=== PATIENT | male | born 1975 | race Caucasian/White ===

== ENCOUNTER 2019-11-21 08:07 | Emergency (ER) | payer SELFPAY ==
[2019-11-21 08:16] VITALS: BP 128/91; PULSE 81; RESP 16; TEMP 36.6; O2SAT 97
--- NOTE | 2019-11-21 08:29 | XR_ITS ---
WS: [id number] LEFT RIBS, MULTIPLE VIEWS HISTORY: chest pain COMPARISON: 12/31/2013 Ribs: No rib fractures or bone destruction identified. Lungs and mediastinum: Lungs clear. No pleural effusion or pneumothorax. XR/XR ribs LT 2V* [id number] IMPRESSION: No LEFT rib fractures identified.
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
[2019-11-21] MEDS: acetaminophen 500 mg Tablet 1000 MG PO (09:52)
[2019-11-21 09:53] VITALS: BP 121/81; PULSE 67; RESP 16; O2SAT 97
--- NOTE | 2019-11-21 13:49 | DCPLANNER ---
manager of development had message to speak with patient about getting established with a primary care physician. manager of development called phone number [phone], unable to speak with patient and unable to leave a voicemail.
== END 2019-11-21 09:53 | disposition home or self-care (01) ==
PROVIDERS: Emergency Provider Nurse Practitioner Family
DX: M94.0 Chondrocostal junction syndrome [Tietze] (principal)
CPT/HCPCS: 12345; 71100; 99282; 99283

== ENCOUNTER 2020-08-17 10:42 | Emergency (ER) | payer MEDICAID, SELFPAY ==
[2020-08-17 10:55] VITALS: BP 135/84; PULSE 80; RESP 18; TEMP 36.8; O2SAT 98; BMI 21.2
[2020-08-17 11:00] VITALS: RESP 15
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
[2020-08-17 11:49] VITALS: RESP 15
== END 2020-08-17 11:50 | disposition home or self-care (01) ==
PROVIDERS: Emergency Provider Nurse Practitioner Family
DX: M79.605 Pain in left leg (principal)
CPT/HCPCS: 73590; 99282

== ENCOUNTER 2020-12-21 08:46 | Emergency (ER) | payer MEDICAID, SELFPAY ==
[2020-12-21 08:55] VITALS: BP 132/88; PULSE 79; RESP 20; TEMP 36.6; O2SAT 97; BMI 20.7
--- NOTE | 2020-12-21 09:09 | XRR_ITS ---
PROCEDURE INFORMATION: Exam: XR Thoracic Spine Exam date and time: 12/21/2020 9:09 AM Age: 45 years old Clinical indication: Pain in thoracic spine; Patient HX: Patient says he was lifting a mattress this morning just prior to arrival and felt something tear in his back. He rates the pain currently a 10 out of 10. Says the pain is in his mid back region. ; Additional info: Mid back injury with pain TECHNIQUE: Imaging protocol: XR of the thoracic spine. Views: 3 views. COMPARISON: [place]* [id number] 12/31/2013 8:36 AM FINDINGS: Bones/joints: Osteopenia with multiple compression fractures, which were also visualized on previous CT. Mild scoliosis. Mild degenerative change. Anatomic alignment. Soft tissues: Normal caliber of the paraspinous soft tissues. XR/XR thoracic spine 3V* [id number] IMPRESSION: Osteopenia with multiple compression fractures. Radiation Dose CTDIVOL = (mGy): DLP = (mGy-cm)
--- NOTE | 2020-12-21 09:14 | W.ED.BACK ---
HPI - Back Pain/Injury General: Chief Complaint: Back Pain/Injury Stated Complaint: Back Pain due to wrong movement Time Seen by Provider: 12/21/20 09:00 History of Present Illness: HPI Narrative: Patient is a 45-year-old male comes to the ED with back pain. Patient says he was lifting a mattress this morning just prior to arrival and felt something tear in his back. He rates the pain currently a 10 out of 10. Says the pain is in his mid back region. Any movement causes worsening symptoms. Resting in certain positions causes some mild improvement in pain. Denies any pain radiating to extremities, numbness/tingling to extremities, bladder or bowel incontinence, pelvic anesthesia or weakness to extremities. Associated symptoms: Deny abdominal pain, chills, dysuria, fatigue, fever(s), hematuria, nausea or vomiting Review of Systems Const: Denies: fever(s), chills or fatigue Eyes: Denies: change in vision or eye discomfort ENMT: Denies: throat pain, odynophagia, nasal discharge or nasal congestion Card: Denies: chest pain, palpitations, edema, swelling of feet/ankles, dyspnea on exertion or orthopnea Resp: Denies: dyspnea, productive cough or non-productive cough GI: Denies: abdominal pain, nausea, vomiting, diarrhea, constipation or hematochezia : Denies: flank pain, difficulty urinating, dysuria or hematuria Musc: Reports: back pain; Denies: neck pain or extremity swelling Skin/Breast: Denies: rash or new lesions Neuro: Denies: headache(s), numbness in extremities or weakness in extremities Physical Exam Const: COMMON NORMALS: patient oriented x3 and alert GENERAL APPEARANCE: cooperative; not comfortable (Patient appears uncomfortable and in some pain) HENMT: COMMON NORMALS: normocephalic HEAD & SCALP: normocephalic MOUTH: Normal oral and palatal mucosa present THROAT: posterior oropharynx normal and uvula midline Neck/C-Spine: COMMON NORMALS: supple GENERAL: Yes normal visual inspection Resp: COMMON NORMALS: normal respiratory effort, No retractions, No use of accessory muscles and clear to auscultation bilaterally AUSCULTATION: clear to auscultation bilaterally Cardio: COMMON NORMALS: regular rate, regular rhythm, S1 normal heart sound present, S2 normal heart sound present, No gallops present (Cardio), No clicks present (Cardio), No murmurs present (Cardio) and Peripheral pulses 2+ throughout RATE: regular rate RHYTHM: regular rhythm HEART SOUNDS: S1 normal heart sound present and S2 normal heart sound present PERIPHERAL PULSES: Peripheral pulses 2+ throughout GI: COMMON NORMALS: Normal to inspection, nondistended, normoactive bowel sounds present, Soft to palpation, non-tender and no masses PALPATION: Yes Soft to palpation : COMMON NORMALS: Yes no CVA tenderness BLADDER/KIDNEY EXAM: Yes no CVA tenderness Back/Pelvis: COMMON NORMALS: no CVA tenderness THORACIC SPINE/UPPER BACK: Yes pain with ROM, Yes thoracic spinal tenderness T-spine tenderness location: T7, T8 and T9 and Yes paraspinal muscle tenderness Thoracic paraspinal muscle tenderness: bilateral Bilateral thoracic paraspinal muscle tenderness: T7, T8 and T9 Extremity: COMMON NORMALS: normal to inspection Neuro: COMMON NORMALS: patient oriented x3 and moves all extremities SENSORIUM/ORIENTATION: Yes alert Skin: GENERAL SKIN EXAM: dry skin Course Consultations: Consultation #1: I contacted radiology to discuss the x-ray thoracic spine findings. They told me that the compression fractures that they see appear unchanged and were visualized in previous CT back in 2013. They felt those were old compression fractures and there is been no acute change with them. Vital Signs: Vital signs: Vital Signs Temperature 97.8 F 12/21/20 08:55 Pulse Rate 79 12/21/20 08:55 Respiratory Rate 20 H 12/21/20 09:17 Blood Pressure 132/88 12/21/20 08:55 Pulse Oximetry 97 12/21/20 08:55 MDM - Back Pain/Injury MDM Narrative: Medical decision making narrative: Patient is a 45-year-old male comes to the ED with mid thoracic back pain after lifting a mattress this morning. He has some thoracic thoracic spine tenderness around T7-T9 and thoracic paraspinal muscle tenderness as well. X-ray of thoracic spine showed osteopenia and there were compression fractures noted but those were seen in previous scans back in 2013 and I talked with radiologist and they said that the compression fractures appear unchanged from previous imaging and they do not appear acute and there is no new fracture seen. Patient was diagnosed with musculoskeletal back pain and discharged home with a prescription for cyclobenzaprine and hydrocodone 5 mg / 325 mg 8 tablets. He was told to follow-up with PCP in 7 to 10 days reevaluation. Return to ED precautions given. Rest, ice and limit lifting. Imaging Data^: Xray Ortho: Attestation: I personally reviewed and interpreted this imaging study as follows: Radiologist's impression: [facility] [address] [place] [address] XRay Report Signed Patient: Artemio Barnes Jr Unit #: [id number] : 1975 Age/Sex: 45 / M ADM Date: 12/21/20 Loc: ER Room/Bed: Attending Dr: Ordering Provider/Ordering MD: Toby Galeano Date of Service: 12/21/20 Procedure(s): XR thoracic spine 3V* [id number] Accession Number(s): [id number] Report Number: [id number] PROCEDURE INFORMATION: Exam: XR Thoracic Spine Exam date and time: 12/21/2020 9:09 AM Age: 45 years old Clinical indication: Pain in thoracic spine; Patient HX: Patient says he was lifting a mattress this morning just prior to arrival and felt something tear in his back. He rates the pain currently a 10 out of 10. Says the pain is in his mid back region. ; Additional info: Mid back injury with pain TECHNIQUE: Imaging protocol: XR of the thoracic spine. Views: 3 views. COMPARISON: [place]* [id number] 12/31/2013 8:36 AM FINDINGS: Bones/joints: Osteopenia with multiple compression fractures, which were also visualized on previous CT. Mild scoliosis. Mild degenerative change. Anatomic alignment. Soft tissues: Normal caliber of the paraspinous soft tissues. XR/XR thoracic spine 3V* [id number] IMPRESSION: Osteopenia with multiple compression fractures. Radiation Dose CTDIVOL = (mGy): DLP = (mGy-cm) Dictated By: Onesimo Fragoso MD Signed By: Onesimo Fragoso MD Signed Date/Time: 12/21/20 1028 DD/ 0909 Discharge Plan Discharge Patient Disposition: Home Clinical Impression: Musculoskeletal back pain Condition: Stable Prescriptions: New cyclobenzaprine 10 mg tablet 10 mg PO BID PRN (Reason: muscle spasm) Qty: 20 RF: 0 No Action methylprednisolone 4 mg tablets,dose pack See Rx Instructions .ROUTE .COMPLEX Qty: 21 RF: 0 Discharge Orders: Discharge ED (Routine); Ordered 12/21/20 Ordered By: Toby Galeano Discharge Diet: Regular Discharge Activity: Increase activity as tolerated and Limit activity as instructed Patient Instructions: Musculoskeletal Pain (ED), Back Pain (ED), Opioid Safety Activity Restrictions/Additional Instructions: Follow-up with medical provider as directed in 5 to 7 days for reevaluation. Take medications as prescribed. Cyclobenzaprine is a muscle relaxer and can cause some drowsiness so take at night before going to bed. Rest, limit lifting and activity for the next couple days and apply cold pack or heat on back to help with symptoms. Return to the ER or your medical provider if condition worsens. Please read and understand discharge instructions. Thank you for choosing [facility] for your healthcare needs today. Please realize this is an emergency room and that we are providing you with a medical screening exam and this may not be complete and all inclusive of all the testing and or work up that you may need to determine your ailment or severity of your illness. It is very important that you follow up as instructed or that you return to the Emergency Department should you have concerns or if your condition changes or worsens in any way. Coding Level of Care Code ED Mortgage Clerk for Carlos Chandler Exam Comprehensive
[2020-12-21 09:17] VITALS: RESP 20
[2020-12-21] MEDS: morphine 4 mg/mL SDV 1 mL IM (09:17)
[2020-12-21] MEDS: orphenadrine 30 mg/mL Inj 2 mL 60 MG IM (09:18)
== END 2020-12-21 11:04 | disposition home or self-care (01) ==
PROVIDERS: Emergency Provider Physician Assistant
DX: M54.89 Other dorsalgia (principal); M85.88 Other specified disorders of bone density and structure, other site
CPT/HCPCS: 72072; 96372; 99283; J2270; J2360

== ENCOUNTER 2020-12-28 06:00 | Outpatient (CLI) | payer MEDICAID, SELFPAY | END 2020-12-28 06:01 | disposition home or self-care (01) | LOC: SPT 12-29 12:25 | PROVIDERS: Referring Provider Pediatrics; Visit Provider Pediatrics | DX: Z46.89 Encounter for fitting and adjustment of other specified devices (principal) | CPT/HCPCS: 97760; L0456 ==

== ENCOUNTER 2021-02-02 06:00 | Outpatient (RCR) | payer MEDICAID, SELFPAY | END 2021-02-12 23:59 | disposition home or self-care (01) | LOC: SPT 06:00 | PROVIDERS: Referring Provider Pediatrics; Visit Provider Pediatrics | DX: M54.89 Other dorsalgia (principal) | CPT/HCPCS: 97161 ==

== ENCOUNTER 2021-02-13 06:00 | Outpatient (RCR) | payer MEDICAID, SELFPAY | END 2021-03-15 23:59 | disposition home or self-care (01) | LOC: SPT 06:00 | PROVIDERS: Referring Provider Pediatrics; Visit Provider Pediatrics | DX: M54.89 Other dorsalgia (principal) | CPT/HCPCS: 97110 ==

== ENCOUNTER → 2021-06-29 11:18 | Outpatient (BNVA) | payer MEDICAID, SELFPAY | PROVIDERS: PCP Pediatrics; Visit Provider Surgery | DX: K61.0 Anal abscess (principal); L03.90 Cellulitis, unspecified | CPT/HCPCS: 99204 ==

== ENCOUNTER → 2021-07-20 08:41 | Outpatient (BNVA) | payer MEDICAID, SELFPAY | PROVIDERS: PCP Pediatrics; Visit Provider Surgery | DX: K61.0 Anal abscess (principal); L03.90 Cellulitis, unspecified | CPT/HCPCS: 99213 ==

== ENCOUNTER 2021-07-26 00:58 | Observation (INO) | payer MEDICAID, SELFPAY ==
[2021-07-26] VITALS (8 sets, daily range): BP systolic 129–161; BP diastolic 85–130; PULSE 61–91; RESP 16–22; TEMP 36.4–36.9; O2SAT 93–100
--- NOTE | 2021-07-26 01:06 | ECG_ITS ---
[facility] Test Date: 2021-07-26 Pat Name: Artemio Barnes Jr Department: Room: Gender: Male Sales Operations Manager: : 1975 Requested By: Tyrone Mitchell Order Number: [id number] Josse MD: Leonor Dyer M.D. Measurements Intervals Bly Rate: 71 P: 58 OK: 152 QRS: 82 QRSD: 94 T: 69 QT: 362 QTc: 395 Interpretive Statements SINUS RHYTHM INCOMPLETE RIGHT BUNDLE BRANCH BLOCK [90+ ms QRS DURATION, TERMINAL R IN V1/V2, 40+ ms S IN I/aVL/V4/V5/V6] SEPTAL MYOCARDIAL INFARCTION , OF INDETERMINATE AGE [40+ ms Q WAVE IN V1/V2] No previous ECG available for comparison Electronically Signed On 07-26-2021 19:39:16 CDT by Leonor Dyer M.D. [id number]
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
[2021-07-26 01:17] LABS: Basophils # 0.1 10^3/uL (0.0-0.1); Basophils % 0.8 %; Eosinophils # 0.4 10^3/uL (0.0-0.8); Eosinophils % 3.6 %; Hematocrit 54.6 % (42.0-52.0); Hemoglobin 18.9 g/dL (11.7-16.6); Lymphocytes # 2.7 10^3/uL (0.8-4.8); Lymphocytes % 25.7 %; Mean Corpuscular HGB Conc 34.6 g/dL (30.0-36.0); Mean Corpuscular Hemoglobin 30.5 pg (28.0-34.0); Mean Corpuscular Volume 88.2 fl (80-94); Mean Platelet Volume 9.5 fL (7.4-10.4); Monocytes # 0.9 10^3/uL (0.2-0.9); Monocytes % 8.8 %; Neutrophils # 6.49 10^3/uL (1.8-7.7); Nucleated Red Blood Cells % 0 %; Platelet Count 269 10^3/cmm (130-400); Red Blood Count 6.19 10^6/uL (4.1-5.3); Red Cell Distribution Width 13.8 % (12.1-15.1); White Blood Count 10.6 10^3/uL (4.0-10.0)
[2021-07-26] MEDS: HYDROmorphone 1 mg/mL INJ 1 mL IVP (01:26)
[2021-07-26] MEDS: ondansetron 2 mg/ML SDV 2 mL 4 MG IVP ×2 (01:26→07:02)
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
[2021-07-26 01:36] LABS: Alanine Aminotransferase 32 U/L (0-41); Albumin Level 4.8 g/dL (3.5-5.2); Alkaline Phosphatase 134 IU/L (40-130); Anion Gap 16.2 (5-19); Aspartate Amino Transferase 23 U/L (0-40); Blood Urea Nitrogen 13 mg/dL (6-20); Calcium 9.6 mg/dL (8.5-10.5); Carbon Dioxide 25 mmol/L (22-29); Chloride 99 mmol/L (98-107); Globulin 3.3 g/dL (1.3-4.6); Glomerular Filtration Rate 105.5 mL/min (90-130); Glucose 100 mg/dL (65-115); Osmolality Calculated 282 mOsm/kg (285-295); Potassium 4.2 mmol/L (3.5-5.1); Sodium 136 mmol/L (136-145); Total Bilirubin 1.4 mg/dL (0.15-1.2); Total Protein 8.1 g/dL (6.6-8.7)
[2021-07-26] MEDS: iohexol 300 mg/mL 100 mL Btl IV (02:06)
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
--- NOTE | 2021-07-26 05:29 | PC.NURSE ---
Has not voided yet-
--- NOTE | 2021-07-26 06:00 | XRR_ITS ---
PROCEDURE INFORMATION: Exam: XR Chest Exam date and time: 07/26/2021 6:55 AM Age: 45 years old Clinical indication: Condition or disease; Lung condition and disease; Pneumothorax; Additional info: Pneumothorx TECHNIQUE: Imaging protocol: XR of the chest. Views: 1 view. Total images: 1 COMPARISON: CT chest abd pel w con* 07/26/2021 2:08 AM FINDINGS: Lungs: Streaky left basilar opacity favors atelectasis. Pleural spaces: Small right pneumothorax similar to prior exam. Heart/Mediastinum: Unremarkable. No cardiomegaly. Diaphragm: There is nonspecific elevation of the right hemidiaphragm. Bones/joints: Osseous structures are unchanged from the prior exam. Organs: Urinary contrast material present at the time of imaging. XR/XR chest 1V portable [id number] IMPRESSION: 1. Small right pneumothorax similar to prior exam. 2. Streaky left basilar opacity favors atelectasis.
[2021-07-26] MEDS: HYDROcodone-acetaminophen 5-325 mg Tablet 1 TAB PO ×2 (06:17→10:59)
[2021-07-26] MEDS: nicotine 21 mg Patch 1 PATCH TRANSDERMA (08:48)
--- NOTE | 2021-07-26 08:51 | PC.NURSE ---
Attempted to administer pt am meds, pt stated that he already took them about 30 min ago. Informed pt that he needed to take our medications while in the hospital. He repeated that he understood.
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
--- NOTE | 2021-07-26 11:01 | XRR_ITS ---
PROCEDURE INFORMATION: Exam: XR Chest Exam date and time: 07/26/2021 10:55 AM Age: 45 years old Clinical indication: Condition or disease; Lung condition and disease; Pneumothorax; Additional info: Right ptx, 10:12--spoke to Dr garcia, HX of pneumothorax, pa/lat requested not TECHNIQUE: Imaging protocol: XR of the chest. Views: 2 views. Total images: 4 COMPARISON: CR (CHEST, ) 07/26/2021 6:55 AM FINDINGS: Lungs: Bibasilar opacities are again noted and appear unchanged from the prior exam. Pleural spaces: Unremarkable. No pleural effusion. No pneumothorax. Heart/Mediastinum: Unremarkable. No cardiomegaly. Bones/joints: Unremarkable. XR/XR chest 2V* [id number] IMPRESSION: Bibasilar opacities are again noted and appear unchanged from the prior exam.
[2021-07-26 11:08] LABS: Hematocrit 51.5 % (42.0-52.0); Hemoglobin 17.6 g/dL (11.7-16.6)
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
== END 2021-07-26 13:30 | disposition home or self-care (01) ==
LOC: ER 02:53 → MEDSURG 02:59
PROVIDERS: Admitting Provider Surgery; Emergency Provider Emergency Medicine; PCP Pediatrics; Visit Provider Surgery
DX: S27.2XXA Traumatic hemopneumothorax, initial encounter (principal); W50.0XXA Accidental hit or strike by another person, initial encounter; J44.9 Chronic obstructive pulmonary disease, unspecified; F41.9 Anxiety disorder, unspecified; F17.210 Nicotine dependence, cigarettes, uncomplicated
CPT/HCPCS: 36415; 71045; 71046; 71101; 71260; 74177; 80053; 85014; 85018; 85025; 93005; 96374; 96375; 99285; G0378; J1170; J2405; Q9967

== ENCOUNTER → 2021-08-03 08:00 | Outpatient (BNVA) | payer MEDICAID, SELFPAY | PROVIDERS: PCP Pediatrics; Visit Provider Surgery | DX: K61.0 Anal abscess (principal); S27.2XXA Traumatic hemopneumothorax, initial encounter; X58.XXXA Exposure to other specified factors, initial encounter | CPT/HCPCS: 71046; 99214 ==

== ENCOUNTER → 2021-09-27 15:08 | Outpatient (BNVA) | payer MEDICAID, SELFPAY | PROVIDERS: PCP Pediatrics; Visit Provider Surgery | DX: K61.0 Anal abscess (principal) | CPT/HCPCS: 99213 ==

== ENCOUNTER 2021-10-06 10:53 | Day surgery (SDC) | payer MEDICAID, SELFPAY ==
[2021-10-06] VITALS (14 sets, daily range): BP systolic 93–134; BP diastolic 67–92; PULSE 55–74; RESP 12–18; TEMP 36.2–36.8; O2SAT 96–99
[2021-10-06] MEDS: sodium chloride 0.9% 1,000 ML 30 ML IV (11:45)
[2021-10-06] MEDS: acetaminophen 1,000 MG/100 ML PIGGYBACK 400 MG IV (11:45)
--- NOTE | 2021-10-06 12:00 | ANES.PREANE2 ---
Pre-Anesthetic Assessment Height/Weight: Height 1.78 m Weight 63.503 kg Temp Pulse Resp BP Pulse Ox O2 Del Method 98.3 F 72 18 125/92 96 10/06/21 11:23 10/06/21 11:23 10/06/21 11:23 10/06/21 11:23 10/06/21 11:23 10/06/21 11:23 Preop Diagnosis: Left perianal abscess Operation Date: 10/06/21 13:35 Proposed Procedures p exam under anesthesia with possible incision and drainage of left perianal abscess 53387,K61(Not Applicable) - Kevin Mclain MD Familial anesthetic complications: none Was Beta Tayo taken within 24 hours: N/A Was Clonidine taken within 24 hours: N/A Last intake: Intake Last Liquid Date 10/06/21 Last Liquid Time 07:00 Last Solid Date 10/05/21 Last Solid Time 12:00 Social Tobacco and No alcohol Exam alert, oriented x 3 and regular rate & rhythm Airway Submandibular: within normal limits Cervical ROM: within normal limits Mallampati: Class II Dentition: chipped Pulmonary Chronic Obstructive Pulmonary Disease GI Gastroesophageal Reflux Disease Anesthetic Plan ASA status: 2 Anesthesia: General Medications/Allergies Home Medications Medication Instructions Recorded Confirmed Last Taken Type escitalopram oxalate 10 mg tablet 10 mg PO QAM 06/29/21 10/06/21 10/05/21 History (Lexapro) fluticasone propionate 50 2 spray intranasal DAILY PRN 06/29/21 10/05/21 Unknown History mcg/actuation nasal Allergy Symptoms spray,suspension (Flonase Allergy Relief) hydroxyzine HCl 25 mg tablet 25 mg PO Q4H PRN Anxiety 06/29/21 10/06/21 Unknown History omeprazole 20 mg capsule,delayed 20 mg PO QAM 06/29/21 10/06/21 10/05/21 History release albuterol sulfate 90 mcg/actuation 2 puff inhalation Q6H PRN 07/26/21 10/06/21 Unknown History aerosol inhaler (ProAir HFA) Shortness Of Breath fluticasone 250 mcg-salmeterol 50 1 inh inhalation BID 07/26/21 10/06/21 10/05/21 History mcg/dose blistr powdr for inhalation (Advair Diskus) peg 3350-electrolytes 236 240 ml PO Q10M #4,000 mL 10/05/21 10/06/21 10/05/21 Rx gram-22.74 gram-6.74 gram-5.86 gram solution (Golytely) Allergies Allergy/AdvReac Type Severity Reaction Status Date / Time ibuprofen Allergy ADR-Vomitin Verified 10/05/21 10:08 g Current Medications Generic Name Dose Route Start Last Admin Trade Name Freq PRN Reason Stop Dose Admin Sodium Chloride 1,000 mls @ 30 mls/hr 10/06/21 11:00 10/06/21 11:45 Sodium Chloride 0.9% IV 10/07/21 10:59 30 mls/hr .Q24H LAN Administration PFSH Anesthesia Medical History Anxiety COPD (chronic obstructive pulmonary disease) Rib fracture Traumatic pneumohemothorax Surgical History H/O unilateral orchiectomy left History of removal of cyst Family History Other Cancer Diabetes Hypertension Social History Smoking and tobacco status: current every day smoker Data Anesthesia Cardiac Studies: No Data to Display
--- NOTE | 2021-10-06 12:16 | W.PM.OPSUD ---
Surgery/Procedure H&P Update DATE OF PROCEDURE: October 06, 2021 DATE H&P PERFORMED: 09/27/21 H&P UPDATE INFORMATION: I have reviewed H&P completed within last 30 days, I have examined patient prior to procedure and Changes to prior documentation as noted here (stopped draining) PREOP DIAGNOSIS: Left perianal abscess PRIMARY INDICATION FOR PROCEDURE: The same PLANNED PROCEDURE: Operation Date: 10/06/21 13:35 Proposed Procedures p exam under anesthesia with possible incision and drainage of left perianal abscess [id number],K61(Not Applicable) - Kevin Mclain MD
[2021-10-06] MEDS: midazolam 1 mg/mL INJ 2 mL 2 MG IVP (12:18)
[2021-10-06] MEDS: piperacillin-tazobactam 3.375 GM in sodium chloride 0.9% (plus) 50 ML IV (12:24)
--- NOTE | 2021-10-06 12:53 | PM.OP ---
Operative Report Date of procedure: October 06, 2021 Pre-op diagnosis: Preop Diagnosis Left perianal abscess Post-op diagnosis: No evidence of perianal infection or fistulae or sinuses Procedure done: Examination under anesthesia Surgeon: Kevin Mclain MD Health And Safety Manager: landscape management technicianez Galdamez Anesthesia: General ([facility] FENCE LABORER Lita) Procedure: Patient was identified in the holding area, was taken to the OR placed first in supine position,IV antibiotics were given with induction time-out was done verifying the patient's name, date of , and procedure, all were in agreement. General anesthetic was administered by the anesthesia provider, patient was placed in left lateral position SCDs were on and functioning. Prep and drape of the perianal and perineum was done under the usual sterile technique Digital rectal examination showed no masses or bleeding or fullness Perianal examination showed completely normal findings, except for previous scar tissues on the right perianal area. Left perianal area showed no induration or sinuses or fistulae or abscess formation. Aspiration of the left perianal area using wide bore needle reveals no pus or blood. A lubricated self-retaining proctoscope was inserted, no evidence of hemorrhoidal tissues or sinuses or fistulae. ABDs were applied followed by surgical pants Patient was repositioned to supine position, counts of instruments,needles and sponges were completed at the end of the procedure Patient was taken to the recovery area in stable condition I was present for the whole entire procedure
--- NOTE | 2021-10-06 13:34 | PC.NURSE ---
patient awake and oral airway removed
[2021-10-06] MEDS: HYDROmorphone 1 mg/mL INJ 1 mL 0.5 MG IVP (14:18)
--- NOTE | 2021-10-06 18:24 | ANE.PACU2 ---
Inpatient post-anesthesia follow up: Airway intact: Yes Vital signs: Temperature 98 F Pulse Rate 65 Respiratory Rate 18 Blood Pressure 134/90 Pulse Oximetry 98 Oxygen Delivery Me thod Room Air Oxygen Flow Rate 10 Fraction of Inspir ed Oxygen Hydration adequate: Yes Nausea and vomiting: No Pain level: 2 Mental status: Baseline
== END 2021-10-06 14:40 | disposition home or self-care (01) ==
PROVIDERS: PCP Pediatrics; Visit Provider Surgery
PROC: (CPT 10160; principal; 2021-10-06 13:25)
DX: K61.0 Anal abscess (principal); J44.9 Chronic obstructive pulmonary disease, unspecified; K21.9 Gastro-esophageal reflux disease without esophagitis
CPT/HCPCS: 10160; J1170; J2250; J2543; J2704; J7030

== ENCOUNTER 2024-07-03 15:28 | Emergency (ER) | payer MEDICAID, SELFPAY ==
[2024-07-03 15:42] VITALS: BP 126/85; PULSE 91; RESP 16; TEMP 36.7; O2SAT 96
[2024-07-03] MEDS: fluorescein 1 mg Strip EYE-LEFT (17:35)
[2024-07-03] MEDS: tetracaine 0.5% Op Soln 4 mL Btl 1 DROP EYE-LEFT (17:35)
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
[2024-07-03 18:04] VITALS: PULSE 90; O2SAT 98
== END 2024-07-03 18:06 | disposition home or self-care (01) ==
PROVIDERS: Emergency Provider General Practice; PCP Pediatrics
DX: H11.32 Conjunctival hemorrhage, left eye (principal); Z72.0 Tobacco use; J44.9 Chronic obstructive pulmonary disease, unspecified
CPT/HCPCS: 99283; J9999